=== PATIENT | female | born 1985 | race Caucasian/White ===

== ENCOUNTER 2019-10-01 19:48 | Emergency (ER) | payer SELFPAY ==
[2019-10-01] VITALS (7 sets, daily range): BP systolic 124–147; BP diastolic 85–104; PULSE 76–91; RESP 16–18; TEMP 36.4; O2SAT 94–99; BMI 36.3
[2019-10-01 20:08] LABS: Basophils % 0.2 %; Eosinophils # 0.2 10^3/uL (0.0-0.8); Eosinophils % 2.3 %; Hematocrit 39.1 % (37.0-47.0); Hemoglobin 12.3 g/dL (11.5-15.3); Lymphocytes # 2.6 10^3/uL (0.8-4.8); Lymphocytes % 28.7 %; Mean Corpuscular HGB Conc 31.5 g/dL (30.0-36.0); Mean Corpuscular Hemoglobin 26.9 pg (28.0-34.0); Mean Corpuscular Volume 85.6 fL (81-99); Mean Platelet Volume 10.2 fL (7.4-10.4); Monocytes # 0.6 10^3/uL (0.2-0.9); Monocytes % 6.2 %; Neutrophils % 62.4 %; Nucleated Red Blood Cells % 0 %; Platelet Count 310 10^3/cmm (130-400); Red Blood Count 4.57 10^6/uL (4.1-5.3); Red Cell Distribution Width 13.9 % (12.1-15.1)
[2019-10-01 20:24] LABS: Alanine Aminotransferase 12 U/L (0-33); Albumin Level 4.3 g/dL (3.5-5.2); Alkaline Phosphatase 73 IU/L (35-105); Anion Gap 14.6 (5-19); Aspartate Amino Transferase 15 U/L (0-32); Blood Urea Nitrogen 8 mg/dL (6-20); Calcium 9.2 mg/dL (8.5-10.5); Carbon Dioxide 24 mmol/L (22-29); Chloride 104 mmol/L (98-107); Globulin 3.1 g/dL (1.3-4.6); Glomerular Filtration Rate 113.8 mL/min (90-130); Glucose 121 mg/dL (65-115); Lipase 18 U/L (13-60); Osmolality Calculated 285 mOsm/kg (285-295); Potassium 3.6 mmol/L (3.5-5.1); Sodium 139 mmol/L (136-145); Total Bilirubin 0.4 mg/dL (0.15-1.2); Total Protein 7.4 g/dL (6.6-8.7)
--- NOTE | 2019-10-01 21:32 | ECG_ITS ---
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 Measurements Intervals Odell Rate: 74 P: 16 OK: 190 QRS: 31 QRSD: 96 T: 29 QT: 366 QTc: 406 Interpretive Statements SINUS RHYTHM No previous ECG available for comparison Electronically Signed On 10-02-2019 22:40:16 CDT by Joe Sepulveda M.D. [id number]
--- NOTE | 2019-10-01 21:33 | US_ITS ---
WS: [id number] EXAM: RIGHT UPPER QUADRANT ULTRASOUND DATE OF EXAMINATION: 10/01/2019, 2206 hours COMPARISON: None. HISTORY: 34 years old with right upper quadrant pain. FINDINGS: Visualized pancreas is normal in appearance. Proximal inferior vena cava and aorta are normal in caliber. The liver is minimally enlarged. There may be some very minimal fatty infiltration. No mass within th e liver is seen. Portal venous flow is demonstrated by color flow and spectral Doppler with flow towa rd the liver. The gallbladder is normally distended without depress or stones. No wall thickening is seen. Common bile duct diameter is estimated at 0.4 mm in maximum transverse caliber. The right kidney is estimated at 12.5 x 4.1 x 4.2 cm in size. Cortical thickness and echotexture are normal. No mass or obstructive uropathy is seen. US/US gall bladder [id number] IMPRESSION: Minimal enlargement of the liver with suggestion for some minimal fatty infiltr ation. Otherwise normal right upper quadrant ultrasound. Common bile duct 3.6 mm in transverse caliber.
--- NOTE | 2019-10-01 21:36 | W.ED.ABDPA2 ---
HPI - Abdominal Pain General: Chief Complaint: Abdominal Pain Stated Complaint: upper abd pain Time Seen by Provider: 10/01/19 21:26 Source: patient Mode of arrival: ambulatory Limitations: no limitations History of Present Illness: HPI narrative: Joe is a nice 34-year-old female who comes in complaining of epigastric pain. She states the pain is been constant for the past 2 days. She has a dull aching pain that is constant and occasional cramping pains which she says make her pain much worse. She denies any vomiting but has been severely nauseated. She states her pain is moderate to severe. She denies any diarrhea or constipation. She denies any urinary symptoms such as urinary frequency, urgency or frequency. She denies any vaginal discharge or bleeding. Patient states she is had similar symptoms numerous times in the past but no cause can ever be determined. She states she is undergone CAT scan, hepatobiliary scans among other testing. Patient does admit to taking more ibuprofen than normal recently secondary to being out of her meloxicam that she would normally take. She says any kind of eating or drinking makes her symptoms much worse and only resting makes them better. Associated Symptoms: Reports nausea; Denies chills, coffee ground emesis, constipation, GI cramping, diarrhea, dysuria, fever(s), heartburn, hematochezia, hematuria, hematemesis, melena, syncope and vomiting Review of Systems Const: Denies: fever(s), chills, body aches, fatigue, malaise or diaphoresis Eyes: Denies: change in vision, blurry vision, photophobia, eye discomfort, eye discharge or eye redness ENMT: Denies: throat pain, odynophagia, hoarseness, swelling of lips/tongue, ear or mastoid pain, ear discharge, change in hearing or nasal discharge Card: Denies: chest pain, palpitations, irregular heart rhythm, edema, lightheadedness, syncope, pre-syncope, dyspnea on exertion or orthopnea Resp: Denies: dyspnea, productive cough, non-productive cough, wheezing, hemoptysis or chest congestion GI: Reports: abdominal pain and nausea; Denies: vomiting, hematemesis, coffee ground emesis, heartburn, diarrhea, constipation, GI cramping, hematochezia or melena : Denies: flank pain, dysuria, urinary frequency, urinary urgency or hematuria Musc: Denies: neck pain, back pain, extremity pain, extremity swelling, joint pain, joint swelling, joint redness, joint warmth or joint stiffness Skin/Breast: Denies: rash, pruritus, erythema or skin tenderness Neuro: Denies: headache(s), numbness in extremities, weakness in extremities, sensory changes, lack of coordination, difficulty walking, dizziness, vertigo, confusion, Slurred speech present or seizure-like activity Harpreet/Lymph: Denies: easy bruising, easy bleeding, petechiae, purpura or enlarged lymph nodes All/Imm: Denies: urticaria, throat swelling, tongue swelling, facial swelling or acute wheezing PFSH ED PFSH: Medical History (Updated 10/01/19 @ 23:03 by Jennifer Bryant) GERD (gastroesophageal reflux disease) Surgical History (Updated 10/01/19 @ 21:39 by Jennifer Bryant) H/O tubal ligation Female Reproductive History: : 2 Physical Exam Const: COMMON NORMALS: no acute distress, patient oriented x3, no limitations, healthy appearing and well nourished GENERAL APPEARANCE: cooperative, well kempt and well developed HENMT: COMMON NORMALS: normocephalic, atraumatic, external ears normal, EAC's normal and Normal external nose present HEAD & SCALP: normal to inspection, normocephalic and atraumatic FACE & SINUS: normal facial exam and face symmetric NOSE: Normal external nose present and Normal nares present EXTERNAL EAR: Yes external ears normal EXTERNAL AUDITORY CANAL: EAC's normal MOUTH: Normal oral and palatal mucosa present, lip normal and tongue normal Eye: COMMON NORMALS: Equal, round and reactive pupils present and conjunctivae normal GENERAL EYE: appearance normal, both eyes and all related structures ALIGNMENT: Yes alignment normal PERIORBITAL: periorbital findings normal EYELID: eyelids normal CONJUNCTIVA: Yes conjunctivae normal SCLERA: sclerae normal PUPIL: Yes Equal, round and reactive pupils present Neck/C-Spine: COMMON NORMALS: full ROM, no lymphadenopathy, supple, no meningeal signs and no JVD GENERAL: Yes normal visual inspection and Yes trachea midline Chest: COMMONS NORMALS: normal inspection of the chest and normal palpation of entire chest wall Resp: COMMON NORMALS: normal respiratory effort, No retractions, No use of accessory muscles and clear to auscultation bilaterally EFFORT & INSPECTION: Yes able to speak in complete sentences and Yes symmetric chest movement AUSCULTATION: clear to auscultation bilaterally, no crackles, no rales, no rhonchi and no wheezes Cardio: COMMON NORMALS: no JVD, regular rate, regular rhythm, S1 normal heart sound present and S2 normal heart sound present RATE: regular rate RHYTHM: regular rhythm HEART SOUNDS: S1 normal heart sound present, S2 normal heart sound present, no click, no gallops, no murmurs, no rubs and abnormal split S2 GI: COMMON NORMALS: Soft to palpation and No hepatosplenomegaly present PALPATION: Yes Soft to palpation, Yes Tenderness to palpation present (GI) (Epigastric area?mild), No Guarding due to palpation present (GI), No Rigid due to palpation, Yes No hepatosplenomegaly present, No Hernia present, No Palpable mass present and No Pulsatile mass present : COMMON NORMALS: Yes no CVA tenderness BLADDER/KIDNEY EXAM: Yes no CVA tenderness EXTERNAL FEMALE EXAM: No Hernia present Back/Pelvis: COMMON NORMALS: no CVA tenderness, thoracic and lumbar spine normal to inspection, no thoracic nor lumbar tenderness and thoraco-lumbar ROM normal Extremity: COMMON NORMALS: normal to inspection, full ROM, capillary refill normal, no joint enlargement, no clubbing, cyanosis or edema and no calf tenderness Neuro: COMMON NORMALS: patient oriented x3, CN's II-XII intact bilaterally, moves all extremities, no focal motor deficits and no sensory deficits noted MENINGEAL SIGNS: Yes no meningeal signs SPEECH: speech normal Psych: COMMON NORMALS: mental status grossly normal, Normal thought process present, cooperative, normal affect, speech normal and activity/motor behavior normal APPEARANCE: Yes well kempt SPEECH: Yes normal speech THOUGHT PROCESS: Normal thought process present Skin: COMMON NORMALS: no rashes or lesions noted, turgor normal, no jaundice, no petechiae and no mottling GENERAL SKIN EXAM: no rashes or lesions noted and turgor normal Course Vital Signs: Vital signs: Vital Signs Temperature 97.6 F 10/01/19 20:09 Pulse Rate 91 10/01/19 22:36 Respiratory Rate 17 10/01/19 22:53 Blood Pressure 142/104 10/01/19 22:36 Pulse Oximetry 99 10/01/19 22:53 MDM - Abdominal Pain MDM Narrative: Medical decision making narrative: Joe is a nice 34-year-old female who comes in with recurrent upper abdominal pain. She states she is been worked up for this several times in the past. She admits now to not taking her PPI for the past 2 days as well as taking Motrin for chronic arthritic pain. I believe she likely has a gastritis. There is no evidence of gallbladder disease on ultrasound. Patient is feeling markedly better now after pain medication and nausea medicine. She refuses a CT scan of the abdomen and pelvis and she denies having any lower abdominal pain. She agrees that it is a good idea to follow-up with a surgeon for possible EGD and repeat gallbladder testing. She agrees to return here should her symptoms change or worsen otherwise she states she will follow-up with her regular doctor or return here if needed. On repeat exam the patient has no signs of peritonitis, she had no signs on the initial exam. She states her pain is almost completely gone. Lab Data: Attestation: I reviewed the patient's lab results. Labs: Lab Results 10/01/19 10/01/19 10/01/19 Range/Units 07:57 07:57 19:56 WBC 9.0 (4.0-10.0) 10^3/ uL RBC 4.57 (4.1-5.3) 10^6/u L Hgb 12.3 (11.5-15.3) g/dL Hct 39.1 (37.0-47.0) % MCV 85.6 (81-99) fL MCH 26.9 L (28.0-34.0) pg MCHC 31.5 (30.0-36.0) g/dL RDW 13.9 (12.1-15.1) % Plt Count 310 (130-400) 10^3/c mm MPV 10.2 (7.4-10.4) fL Neut % (Auto) 62.4 % Lymph % (Auto) 28.7 % [place] % (Auto) 6.2 % Eos % (Auto) 2.3 % Baso % (Auto) 0.2 % Neut # (Auto) 5.60 (1.8-7.7) 10^3/u L Lymph # (Auto) 2.6 (0.8-4.8) 10^3/u L [place] # (Auto) 0.6 (0.2-0.9) 10^3/u L Eos # (Auto) 0.2 (0.0-0.8) 10^3/u L Baso # (Auto) 0.0 (0.0-0.1) 10^3/u L Nucleated RBC % (a uto) 0 % Nucleated RBCs # 0.0 /100WBC Sodium 139 (136-145) mmol/L Potassium 3.6 (3.5-5.1) mmol/L Chloride 104 (98-107) mmol/L Carbon Dioxide 24 (22-29) mmol/L Anion Gap 14.6 (5-19) BUN 8 (6-20) mg/dL Creatinine 0.6 (0.5-0.9) mg/dL GFR Calculation 113.8 (90-130) mL/min Glucose 121 H (65-115) mg/dL Calculated Osmolal ity 285 (285-295) mOsm/k g Calcium 9.2 (8.5-10.5) mg/dL Total Bilirubin 0.4 (0.15-1.2) mg/dL AST 15 (0-32) U/L ALT 12 (0-33) U/L Alkaline Phosphata se 73 (35-105) IU/L Total Protein 7.4 (6.6-8.7) g/dL Albumin 4.3 (3.5-5.2) g/dL Globulin 3.1 (1.3-4.6) g/dL Lipase 18 20 (13-60) U/L HCG, Qual (Negative) Urine Color (Yellow) Urine Appearance (CLEAR) Urine pH (5-7) Ur Specific Gravit y (1.005-1.030) Urine Protein (Negative) Urine Glucose (UA) (Normal) Urine Ketones (Negative) Urine Blood (Negative) Urine Nitrate (Negative) Urine Bilirubin (NEGATIVE) Urine Urobilinogen (Negative) mg/dL Ur Leukocyte Nilam ase (Negative) 10/01/19 10/01/19 10/01/19 Range/Units 19:56 21:37 21:37 WBC (4.0-10.0) 10^3/ uL RBC (4.1-5.3) 10^6/u L Hgb (11.5-15.3) g/dL Hct (37.0-47.0) % MCV (81-99) fL MCH (28.0-34.0) pg MCHC (30.0-36.0) g/dL RDW (12.1-15.1) % Plt Count (130-400) 10^3/c mm MPV (7.4-10.4) fL Neut % (Auto) % Lymph % (Auto) % [place] % (Auto) % Eos % (Auto) % Baso % (Auto) % Neut # (Auto) (1.8-7.7) 10^3/u L Lymph # (Auto) (0.8-4.8) 10^3/u L [place] # (Auto) (0.2-0.9) 10^3/u L Eos # (Auto) (0.0-0.8) 10^3/u L Baso # (Auto) (0.0-0.1) 10^3/u L Nucleated RBC % (a uto) % Nucleated RBCs # /100WBC Sodium (136-145) mmol/L Potassium (3.5-5.1) mmol/L Chloride (98-107) mmol/L Carbon Dioxide (22-29) mmol/L Anion Gap (5-19) BUN (6-20) mg/dL Creatinine (0.5-0.9) mg/dL GFR Calculation (90-130) mL/min Glucose (65-115) mg/dL Calculated Osmolal ity (285-295) mOsm/k g Calcium (8.5-10.5) mg/dL Total Bilirubin (0.15-1.2) mg/dL AST (0-32) U/L ALT (0-33) U/L Alkaline Phosphata se (35-105) IU/L Total Protein (6.6-8.7) g/dL Albumin (3.5-5.2) g/dL Globulin (1.3-4.6) g/dL Lipase (13-60) U/L HCG, Qual Negative Negative (Negative) Urine Color Yellow (Yellow) Urine Appearance Clear (CLEAR) Urine pH 6.5 (5-7) Ur Specific Gravit y 1.015 (1.005-1.030) Urine Protein Neg (Negative) Urine Glucose (UA) Norm (Normal) Urine Ketones Negative (Negative) Urine Blood Neg (Negative) Urine Nitrate Negative (Negative) Urine Bilirubin Neg (NEGATIVE) Urine Urobilinogen Norm (Negative) mg/dL Ur Leukocyte Nilam ase Negative (Negative) Imaging Data ^: US: My impression: Ultrasound gallbladder, tech interpretation -fatty liver. Gallbladder normal. All other findings unremarkable. Please see final report. EKG Data ^: EKG 1: Attestation: I personally reviewed and interpreted this EKG as follows: EKG interpretation date: 10/01/19 EKG interpretation time: 21:56 Interpretation: Normal sinus rhythm at 74 beats a minute, normal axis, no blocks, normal intervals, no acute ST-T wave changes. Discharge Plan Discharge Patient Disposition: Home Clinical Impression: Abdominal pain Qualifiers: Abdominal location: epigastric Qualified Code(s): R10.13 - Epigastric pain Condition: Stable Prescriptions: New Zofran 4 mg tablet 4 mg PO Q6H PRN (Reason: nausea and vomiting) Qty: 20 RF: 0 Discharge Orders: Discharge Order (Routine); Ordered 10/01/19 Ordered By: Jennifer Bryant Referrals: Naveen Nevarez MD [Physician] - 1-3 days Zachary Powell [Primary Care Provider] - Discharge Diet: Advance as tolerated Discharge Activity: Increase activity as tolerated Patient Instructions: Abdominal Pain (ED) Activity Restrictions/Additional Instructions: Please return to the ER immediately for any of the signs or symptoms listed on your discharge instruction sheets, worsening/changing of your symptoms, you are not getting better as quickly as expected, or for ANY other cause or concerns. Certain to follow-up with Dr. Nevarez as soon as possible for recheck. He can determine if a repeat HIDA scan or a EGD is indicated. Return to the ER if your pain moved to the lower part of your abdomen, you develop a fever, began to vomit, or for any other cause for concern. Coding Level of Care Code ED Gas Station Supervisor for Chg Fwd Exam Comprehensive
[2019-10-01 21:52] LABS: HCG, Serum Qual Negative (Negative)
--- NOTE | 2019-10-01 22:03 | PC.NURSE ---
ultrasound in room
[2019-10-01 22:08] LABS: Add Urine Microscopic? NO
[2019-10-01 22:19] LABS: Bilirubin Urine Neg (NEGATIVE); Blood Urine Neg (Negative); Glucose Urine UA Norm (Normal); HCG Qualitative Urine. Negative (Negative); Ketones Urine Negative (Negative); Leukocyte Esterase Urine Negative (Negative); Nitrate Urine Negative (Negative); Protein Urine Neg (Negative); Specific Gravity, Urine 1.015 (1.005-1.030); Urine Appearance Clear (CLEAR); Urine Color Yellow (Yellow); Urobilinogen Urine Norm (Negative); pH Urine 6.5 (5-7)
[2019-10-01] MEDS: morphine 4 mg/mL SDV 1 mL IVP (22:23)
[2019-10-01] MEDS: famotidine 20 mg/2 mL INJ 40 MG IVP (22:24)
[2019-10-01] MEDS: ondansetron 2 mg/ML SDV 2 mL 4 MG IVP (22:24)
[2019-10-01 22:33] LABS: Lipase 20 U/L (13-60)
[2019-10-01] MEDS: lidocaine 2% viscous 15 ML, aluminum-mag hydrox-simethicon 30 ML, sucralfate oral liq 1 GM PO (22:35)
[2019-10-01] MEDS: metoclopramide 5 mg/mL SDV 2 mL 10 MG IVP (22:53)
[2019-10-01] MEDS: HYDROmorphone 1 mg/mL INJ 1 mL 0.5 MG IVP (22:53)
[2019-10-01] MEDS: pantoprazole 40 mg SDV 80 MG IVP (23:51)
--- NOTE | 2019-10-03 09:11 | DCPLANNER ---
guest experience manager had message to schedule a follow up appointment for patient with general surgery. guest experience manager called [facility], spoke with Jenifer, gave clinic patients information. guest experience manager was told that patients information would be printed and reviewed. Clinic will call patient with appointment information.
--- NOTE | 2019-10-14 15:13 | DCPLANNER ---
Patient had a follow up appointment scheduled for 10.13.19 with [facility] - patient did not attend the appointment.
== END 2019-10-01 23:57 | disposition home or self-care (01) ==
PROVIDERS: Emergency Medicine; Emergency Provider Emergency Medicine; PCP Family Medicine
DX: R10.13 Epigastric pain (principal)
CPT/HCPCS: 12345; 36415; 76705; 80053; 81003; 81025; 83690; 84703; 85025; 93005; 96374; 96375; 99283; 99284; C9113; J1170; J2270; J2405; J2765; J3490

== ENCOUNTER 2020-03-15 10:11 | Emergency (ER) | payer OTHER, MEDICAID, SELFPAY ==
[2020-03-15 10:19] VITALS: BP 164/84; PULSE 92; RESP 18; TEMP 36.9; O2SAT 99; BMI 37.8
[2020-03-15] MEDS: lidocaine 2% viscous 15 ML, aluminum-mag hydrox-simethicon 30 ML, sucralfate oral liq 1 GM PO (10:55)
[2020-03-15 11:01] LABS: Basophils % 0.4 %; Eosinophils # 0.1 10^3/uL (0.0-0.8); Eosinophils % 1.8 %; Hematocrit 40.5 % (37.0-47.0); Hemoglobin 12.9 g/dL (11.5-15.3); Lymphocytes # 1.9 10^3/uL (0.8-4.8); Lymphocytes % 23.4 %; Mean Corpuscular HGB Conc 31.9 g/dL (30.0-36.0); Mean Platelet Volume 10.3 fL (7.4-10.4); Monocytes # 0.7 10^3/uL (0.2-0.9); Monocytes % 9.1 %; Neutrophils # 5.15 10^3/uL (1.8-7.7); Neutrophils % 64.9 %; Nucleated Red Blood Cells % 0 %; Platelet Count 300 10^3/cmm (130-400); Red Cell Distribution Width 13.2 % (12.1-15.1); White Blood Count 7.9 10^3/uL (4.0-10.0)
--- NOTE | 2020-03-15 11:29 | ED_ITS ---
HPI - Abdominal Pain General: Chief Complaint: Abdominal Pain Stated Complaint: Abd/chest pain Time Seen by Provider: 03/15/20 10:13 History of Present Illness: HPI narrative: 34-year-old female presents to the emergency room complaining of epigastric discomfort and pain. Burning radiating up in the chest. She has had a full evaluation for gallbladder in the past including ultrasound and HIDA scan all of which were negative she did recently within the last few weeks been started on a PPI which up until last night seem to be doing well. She did have some jerky last night that seemed to set things off. She has been nauseous vomited a couple times no hematemesis. She has not had any diarrhea. MD elicited complaint: abdominal pain Pertinent past history: other (GERD) Onset (ago): week(s) Pain Consistency: constant Location: Epigastric Severity: moderate Quality: cramping Radiation: none Exacerbating factors: nothing Relieving factors: nothing Associated Symptoms: Reports anorexia, bloating, GI cramping, dyspepsia, nausea and poor appetite; Denies belching, change in bowel habits, change in stool character, chills, coffee ground emesis, constipation, diarrhea, dysuria, excessive flatus, fever(s), heartburn, hematochezia, hematuria, hematemesis, fecal incontinence, loose stools, melena, syncope and vomiting Review of Systems Const: Denies: fever(s) or chills ENMT: Denies: throat pain, ear or mastoid pain, nasal discharge or nasal congestion Card: Denies: syncope Resp: Denies: dyspnea, productive cough or non-productive cough GI: Reports: nausea, bloating and GI cramping; Denies: vomiting, hematemesis, coffee ground emesis, heartburn, diarrhea, constipation, belching, excessive flatus, fecal incontinence, change in bowel habits, change in stool character, hematochezia or melena : Denies: dysuria or hematuria Skin/Breast: Denies: rash or pruritus PFSH ED PFSH: Medical History GERD (gastroesophageal reflux disease) Surgical History H/O tubal ligation Physical Exam Const: COMMON NORMALS: no acute distress GENERAL APPEARANCE: cooperative and comfortable ORIENTATION/CONSCIOUSNESS: Yes awake, Yes oriented to person, Yes oriented to place and Yes oriented to time HENMT: COMMON NORMALS: normocephalic, atraumatic and hearing grossly normal bilaterally HEAD & SCALP: normocephalic and atraumatic Eye: COMMON NORMALS: Equal, round and reactive pupils present, EOMs intact bilaterally, conjunctivae normal and no scleral icterus CONJUNCTIVA: Yes conjunctivae normal PUPIL: Yes Equal, round and reactive pupils present Neck/C-Spine: COMMON NORMALS: full ROM, no lymphadenopathy, supple and no JVD Lymph: LYMPHATIC: no lymphadenopathy noted and no lymphedema noted Resp: COMMON NORMALS: normal respiratory effort, No retractions, No use of accessory muscles and clear to auscultation bilaterally AUSCULTATION: clear to auscultation bilaterally Cardio: COMMON NORMALS: no JVD, regular rate, regular rhythm and No murmurs present (Cardio) RATE: regular rate RHYTHM: regular rhythm GI: COMMON NORMALS: Soft to palpation and No hepatosplenomegaly present AUSCULTATION: Yes normoactive bowel sounds PALPATION: Yes Soft to palpation, No Tenderness to palpation present (GI), No Guarding due to palpation present (GI) and Yes No hepatosplenomegaly present Extremity: COMMON NORMALS: normal to inspection, capillary refill normal, no clubbing, cyanosis or edema, no calf tenderness and no pedal edema Neuro: SENSORIUM/ORIENTATION: Yes oriented to person, Yes oriented to place and Yes oriented to time Skin: COMMON NORMALS: no rashes or lesions noted GENERAL SKIN EXAM: no rashes or lesions noted Course Vital Signs: Vital signs: Vital Signs Temperature 98.4 F 03/15/20 10:19 Pulse Rate 85 03/15/20 12:28 Respiratory Rate 21 H 03/15/20 12:28 Blood Pressure 152/91 03/15/20 12:28 Pulse Oximetry 100 03/15/20 12:28 MDM - Abdominal Pain MDM Narrative: Medical decision making narrative: Improved after the GI cocktail. We will increase her Protonix to twice daily gave her Zofran and will have her see surgery for an EGD. Lab Data: Labs: Lab Results 03/15/20 03/15/20 03/15/20 Range/Units 10:47 10:47 10:47 WBC 7.9 (4.0-10.0) 10^3/ uL RBC 4.60 (4.1-5.3) 10^6/u L Hgb 12.9 (11.5-15.3) g/dL Hct 40.5 (37.0-47.0) % MCV 88.0 (81-99) fL MCH 28.0 (28.0-34.0) pg MCHC 31.9 (30.0-36.0) g/dL RDW 13.2 (12.1-15.1) % Plt Count 300 (130-400) 10^3/c mm MPV 10.3 (7.4-10.4) fL Neut % (Auto) 64.9 % Lymph % (Auto) 23.4 % [place] % (Auto) 9.1 % Eos % (Auto) 1.8 % Baso % (Auto) 0.4 % Neut # (Auto) 5.15 (1.8-7.7) 10^3/u L Lymph # (Auto) 1.9 (0.8-4.8) 10^3/u L [place] # (Auto) 0.7 (0.2-0.9) 10^3/u L Eos # (Auto) 0.1 (0.0-0.8) 10^3/u L Baso # (Auto) 0.0 (0.0-0.1) 10^3/u L Nucleated RBC % (a uto) 0 % Nucleated RBCs # 0.0 /100WBC Sodium 140 (136-145) mmol/L Potassium 3.8 (3.5-5.1) mmol/L Chloride 104 (98-107) mmol/L Carbon Dioxide 26 (22-29) mmol/L Anion Gap 13.8 (5-19) BUN 8 (6-20) mg/dL Creatinine 0.6 (0.5-0.9) mg/dL GFR Calculation 113.8 (90-130) mL/min Glucose 85 (65-115) mg/dL Calculated Osmolal ity 288 (285-295) mOsm/k g Calcium 8.9 (8.5-10.5) mg/dL Total Bilirubin 0.2 (0.15-1.2) mg/dL AST 17 (0-32) U/L ALT 18 (0-33) U/L Alkaline Phosphata se 94 (35-105) IU/L Total Protein 7.5 (6.6-8.7) g/dL Albumin 4.2 (3.5-5.2) g/dL Globulin 3.3 (1.3-4.6) g/dL H. pylori IgG Anti body Negative (Negative) Discharge Plan Discharge Patient Disposition: Home Clinical Impression: GERD (gastroesophageal reflux disease) Condition: Stable Prescriptions: New Zofran 4 mg tablet 4 mg PO Q6H PRN (Reason: nausea and vomiting) Qty: 20 RF: 0 Protonix 40 mg tablet,delayed release (DR/EC) 40 mg PO BID 30 Days Qty: 60 RF: 0 No Action tramadol 50 mg tablet 50 mg PO BID PRN (Reason: Pain) RF: 0 amitriptyline 50 mg tablet 50 mg PO BEDTIME RF: 0 methocarbamol 750 mg tablet 750 mg PO TID RF: 0 pantoprazole 40 mg tablet,delayed release (DR/EC) 40 mg PO QAM RF: 0 buspirone 10 mg tablet 10 mg PO BID RF: 0 Vitamin Tablet 1 tab PO DAILY RF: 0 Probiotic 1 cap PO BID RF: 0 Discharge Orders: Discharge ED (Routine); Ordered 03/15/20 Ordered By: August Sanon Referrals: Zachary Powell [Primary Care Provider] - Discharge Diet: As Directed Discharge Activity: Increase activity as tolerated Patient Instructions: [place] Diet - Adult, Diet for Ulcers and Gastritis (ED) Activity Restrictions/Additional Instructions: Case management will call to arrange for a consultation with surgery for possible EGD Coding Level of Care Code ED Lagging Machine Operator for Mitra Mohr
[2020-03-15 11:41] LABS: Alanine Aminotransferase 18 U/L (0-33); Albumin Level 4.2 g/dL (3.5-5.2); Alkaline Phosphatase 94 IU/L (35-105); Aspartate Amino Transferase 17 U/L (0-32); Blood Urea Nitrogen 8 mg/dL (6-20); Calcium 8.9 mg/dL (8.5-10.5); Carbon Dioxide 26 mmol/L (22-29); Chloride 104 mmol/L (98-107); Globulin 3.3 g/dL (1.3-4.6); Glomerular Filtration Rate 113.8 mL/min (90-130); Glucose 85 mg/dL (65-115); Osmolality Calculated 288 mOsm/kg (285-295); Sodium 140 mmol/L (136-145); Total Bilirubin 0.2 mg/dL (0.15-1.2); Total Protein 7.5 g/dL (6.6-8.7)
[2020-03-15 11:49] LABS: Anion Gap 13.8 (5-19); Potassium 3.8 mmol/L (3.5-5.1)
[2020-03-15 11:55] LABS: H. Pylori IgG Antibody Negative (Negative)
[2020-03-15] MEDS: ondansetron 2 mg/ML SDV 2 mL 4 MG IVP (12:25)
[2020-03-15 12:28] VITALS: BP 152/91; PULSE 85; RESP 21; O2SAT 100
--- NOTE | 2020-03-15 13:45 | DCPLANNER ---
quality systems manager was asked to schedule a follow up appointment for patient with general surgery. quality systems manager emailed patients information to both Elizabeth and Jenifer at [facility] General Surgery. Patients information will be printed and reviewed. Clinic will call patient with appointment information.
--- NOTE | 2020-03-18 12:14 | DCPLANNER ---
Patient has a follow up appointment scheduled for Sunday, March 22, [address] at 2:[address] Meyers. Clinic will call patient with appointment information.
--- NOTE | 2020-04-29 15:46 | DCPLANNER ---
Patient had a follow up appointment scheduled for 03.22.20 with general surgery - patient did attend appointment.
== END 2020-03-15 12:32 | disposition home or self-care (01) ==
PROVIDERS: Emergency Provider Family Medicine; PCP Family Medicine
DX: K21.9 Gastro-esophageal reflux disease without esophagitis (principal)
CPT/HCPCS: 12345; 80053; 85025; 86677; 96374; 99283; J2405

== ENCOUNTER 2020-04-20 07:38 | Day surgery (SDC) | payer OTHER, MEDICAID, SELFPAY ==
[2020-04-17 19:02] LABS: Coronavirus Test Green County Not Detected
[2020-04-19 08:37] VITALS: BMI 37.1
--- NOTE | 2020-04-20 08:06 | ANES.PREANE2 ---
Pre-Anesthetic Assessment Pre-Anesthetic Assessment: Height/Weight: Height 1.68 m Weight 104.326 kg Proposed Procedure: Operation Date: 04/20/20 09:30 Proposed Procedures p EGD 15997 K21.9(Not Applicable) - Alfred Meyers MD Was Beta Micaela taken within 24 hours: N/A Social: Social History: No alcohol and No tobacco Exam: Pre-Anes Outpt Exam: alert and oriented x 3 Airway: Submandibular: WNL Cervical ROM: WNL MP: 1 Dentition: Full History/ROS: No significant complaints Pulmonary: Pulmonary: None reported CV/HEM: CV/HEM: None reported : : None reported Hepatic: Hepatic: None reported GI: GI: GERD Metabolic: Metabolic: Morbid obesity Musc/skel: Musc/skel: None reported Neuropsych: Neuropsych: Anxiety and Depression Anesthetic Plan: ASA status: 2 Anesthesia: MAC PFSH Anesthesia PFSH: Medical History (Updated 03/22/20 @ 14:14 by Judi Last CMA) GERD (gastroesophageal reflux disease) Surgical History (Updated 03/22/20 @ 14:24 by Alfred Meyers MD) H/O tubal ligation History of delivery History of hip surgery History of knee surgery History of umbilical hernia repair Data Anesthesia Cardiac Studies: No Data to Display
[2020-04-20 08:11] VITALS: BP 160/105; PULSE 88; RESP 18; TEMP 36.8; O2SAT 100
[2020-04-20] MEDS: sodium chloride 0.9% 1,000 ML 30 ML IV (08:35)
--- NOTE | 2020-04-20 10:09 | W.PM.OPSFHP ---
Same Day Surgery H&P Indication for Procedure/HPI DATE OF PROCEDURE: April 20, 2020 CHIEF COMPLAINT/INDICATIONFOR SURGICAL PROCEDURE: abdominal pain PREOP DIAGNOSIS: upper gi symptoms PLANNED PROCEDRUE: Operation Date: 04/20/20 09:30 Proposed Procedures p EGD 15225 K21.9(Not Applicable) - Alfred Meyers MD Medications/Allergies* Home Medications Medication Instructions Recorded Confirmed Type Probiotic 1 cap PO BID 03/15/20 04/20/20 History amitriptyline 50 mg PO BEDTIME 03/15/20 04/20/20 History buspirone 10 mg PO BID 03/15/20 04/20/20 History methocarbamol 750 mg PO TID 03/15/20 04/20/20 History pantoprazole 40 mg PO QAM 03/15/20 04/20/20 History prenat.vits,ang[place],gom-tdew-dmjrx 1 tab PO DAILY 03/15/20 04/20/20 History [ Vitamin] tramadol 50 mg PO BID PRN 03/15/20 04/20/20 History Allergies/Adverse Reactions Allergy/AdvReac Type Severity Reaction Status Date / Time codeine Allergy ALGY-Swell Verified 03/22/20 14:05 Lip/Tongue/Throat sumatriptan Allergy ADR-Hyperte Verified 03/22/20 14:05 nsion Current Medications: Generic Name Dose Route Start Last Admin Trade Name Freq PRN Reason Stop Dose Admin Sodium Chloride 1,000 mls @ 30 mls/hr 04/20/20 08:15 04/20/20 08:35 Sodium Chloride 0.9% IV 04/21/20 08:14 30 mls/hr .Q24H GONZÁLEZ Administration Pertinent History/Comorbid Conditions* Medical History (Updated 03/15/20 @ 12:20 by August Sanon DO) GERD (gastroesophageal reflux disease) Surgical History (Updated 03/22/20 @ 14:24 by Alfred Meyers MD) H/O tubal ligation History of delivery History of hip surgery History of knee surgery History of umbilical hernia repair Pertinent Exam Findings alert, oriented x 3 and regular rate & rhythm Recommendations Surgery/Procedure today Coding Level of Care Code Acute 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
--- NOTE | 2020-04-20 10:24 | P.PCN_ITS ---
PACU note Post-Anesthesia Exam: awake Disposition: discharged
--- NOTE | 2020-04-20 10:24 | PM.PACU ---
PACU note Post-Anesthesia Exam: awake Disposition: discharged
[2020-04-20 10:27] VITALS: BP 156/96; PULSE 83; RESP 18; TEMP 36.5; O2SAT 99
--- NOTE | 2020-04-20 10:27 | ANE.PACU2 ---
Inpatient post-anesthesia follow up: Airway intact: Yes Vital signs: Temperature 98.3 F Pulse Rate 88 Respiratory Rate 18 Blood Pressure 160/105 Pulse Oximetry 100 Oxygen Delivery Me thod Room Air Oxygen Flow Rate Fraction of Inspir ed Oxygen Hydration adequate: Yes Nausea and vomiting: No Pain level: 1 Mental status: Baseline
[2020-04-20 10:41] VITALS: BP 105/88; PULSE 81; RESP 18; O2SAT 100
== END 2020-04-20 11:15 | disposition home or self-care (01) ==
PROVIDERS: PCP Family Medicine; Visit Provider Surgery
PROC: 0DJ08ZZ Inspection of Upper Intestinal Tract, Via Natural or Artificial Opening Endoscopic (ICD-10-PCS; CPT 43235; principal; 2020-04-20 09:30)
DX: R10.9 Unspecified abdominal pain (principal); K21.9 Gastro-esophageal reflux disease without esophagitis; K44.9 Diaphragmatic hernia without obstruction or gangrene; K29.70 Gastritis, unspecified, without bleeding; E66.01 Morbid (severe) obesity due to excess calories; Z68.37 Body mass index [BMI] 37.0-37.9, adult
CPT/HCPCS: 43239; 87635; 88305; 96360; 96361; J2704; J7030

== ENCOUNTER 2020-05-26 12:50 | Outpatient (CLI) | payer OTHER, MEDICAID, SELFPAY ==
--- NOTE | 2020-05-26 13:08 | MR_ITS ---
WS: [id number] MRI CERVICAL SPINE NONCONTRAST HISTORY: NUMBNESS/TINGLING IN HANDS, WEAKNESS OF BOTH ARMS COMPARISON: None available. Technique: Multiplanar, multisequence noncontrast imaging of the cervical spine. Straightening and slight reversal of the normal cervical lordosis. Signal within the cervical cord is normal. Visualized posterior fossa is unremarkable. Craniocervical junction, C1 and C2 relationship, odontoid process and soft tissues are normal. C2-C3: Normal. C3-C4: Normal. C4-C5: Normal. C5-C6: Very small vertebral body osteophytes and very tiny central disc protrusion. No stenosis or en croachment upon the cord. C6-C7: Mild osteophytic ridging with a tiny central disc protrusion and no stenosis. C7-T1: Normal. Paraspinal soft tissue are normal. MR/MR cervical spin wo con* [id number] IMPRESSION: 1. No significant central or foraminal stenosis. 2. Very minimal central disc protrusions at C5-6 and C6-7 without cord contact . 3. Mild straightening and reversal normal cervical lordosis may be due to spas m or positioning.
--- NOTE | 2020-05-26 13:09 | MR_ITS ---
WS: [id number] MRI THORACIC SPINE noncontrast. HISTORY: UPPER BACK PAIN, SHOULDER BLADE PAIN, CERVICAL DISC DISORDER COMPARISON: None available. TECHNIQUE: Multiplanar sequences are performed in sagittal and axial planes. Mild straightening of the normal thoracic kyphosis. No marrow edema or fracture. Signal within the co rd is normal. No atrophy or enlargement of the cord. T1-2: Mild bilateral foraminal facet disease. T2-3: Mild foraminal narrowing due to facet disease. T3-4: Mild bilateral foraminal narrowing due to facet disease. T4-5: Mild LEFT foraminal narrowing due to facet disease. T5-6: Mild bilateral foraminal narrowing due to facet disease. T6-7: Mild LEFT foraminal stenosis. T7-8: Normal. T8-9: Normal. T9-10: Mild bilateral facet arthritis. T10-11: Moderate bilateral facet joint arthritis with mild encroachment into the thecal sac and fora men. Mild bilateral foraminal narrowing. T11-12: Moderate facet joint arthritis on the RIGHT causing mild foraminal stenosis. Paravertebral soft tissues are normal. MR/MR thoracic spin wo con* [id number] IMPRESSION: 1. No acute thoracic fractures or cord compression. 2. Multilevel facet joint arthritis resulting in foraminal stenosis. Facet tyler nt space narrowing is mild at multiple levels as described above. Most signific ant on the RIGHT at T10-11 and T11-12.
== END 2020-05-26 12:51 | disposition home or self-care (01) ==
LOC: RADSHAW 12:54
PROVIDERS: PCP Nurse Practitioner Family; Visit Provider Nurse Practitioner Family
DX: R20.2 Paresthesia of skin (principal); R29.898 Other symptoms and signs involving the musculoskeletal system; M50.03 Cervical disc disorder with myelopathy, cervicothoracic region; M89.8X1 Other specified disorders of bone, shoulder; M54.9 Dorsalgia, unspecified
CPT/HCPCS: 72141; 72146

== ENCOUNTER → 2020-06-30 09:02 | Outpatient (BNVA) | payer OTHER, MEDICAID, SELFPAY | PROVIDERS: PCP Nurse Practitioner Family; Referring Provider Nurse Practitioner Family; Visit Provider Anesthesiology Pain Medicine | DX: M50.90 Cervical disc disorder, unspecified, unspecified cervical region (principal); M79.18 Myalgia, other site; M47.814 Spondylosis without myelopathy or radiculopathy, thoracic region; Z79.891 Long term (current) use of opiate analgesic | CPT/HCPCS: 20553; 99205; J1030; J3490 ==

== ENCOUNTER → 2020-07-08 14:59 | Outpatient (BNVA) | payer OTHER, MEDICAID, SELFPAY | PROVIDERS: PCP Nurse Practitioner Family; Visit Provider Registered Nurse Neonatal Intensive Care | DX: R09.89 Other specified symptoms and signs involving the circulatory and respiratory systems (principal) | CPT/HCPCS: 71046 ==

== ENCOUNTER 2022-01-23 18:10 | Inpatient (IN) | payer BC, MEDICAID, SELFPAY ==
[2022-01-23 18:22] VITALS: BP 143/91; PULSE 104; RESP 18; TEMP 36.9; O2SAT 94; BMI 37.5
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
[2022-01-23 20:17] LABS: Basophils % 0.3 %; Eosinophils # 0.1 10^3/uL (0.0-0.8); Eosinophils % 0.8 %; Hematocrit 40.5 % (37.0-47.0); Hemoglobin 13.1 g/dL (11.5-15.3); Lymphocytes # 2.1 10^3/uL (0.8-4.8); Lymphocytes % 20.9 %; Mean Corpuscular HGB Conc 32.3 g/dL (30.0-36.0); Mean Corpuscular Hemoglobin 26.9 pg (28.0-34.0); Mean Corpuscular Volume 83.2 fl (81-99); Mean Platelet Volume 9.8 fL (7.4-10.4); Monocytes # 0.9 10^3/uL (0.2-0.9); Monocytes % 8.3 %; Neutrophils # 7.09 10^3/uL (1.8-7.7); Neutrophils % 69.4 %; Nucleated Red Blood Cells % 0 %; Platelet Count 342 10^3/cmm (130-400); Red Blood Count 4.87 10^6/uL (4.1-5.3); Red Cell Distribution Width 13.7 % (12.1-15.1); White Blood Count 10.2 10^3/uL (4.0-10.0)
[2022-01-23 20:37] LABS: Alanine Aminotransferase 16 U/L (0-33); Albumin Level 4.3 g/dL (3.5-5.2); Alkaline Phosphatase 95 U/L (35-105); Anion Gap 13.9 (5-19); Aspartate Amino Transferase 14 U/L (0-32); Blood Urea Nitrogen 11 mg/dL (6-20); Calcium 9.9 mg/dL (8.5-10.5); Carbon Dioxide 26 mmol/L (22-29); Chloride 98 mmol/L (98-107); Globulin 3.6 g/dL (1.3-4.6); Glomerular Filtration Rate 138.8 mL/min (90-130); Glucose 81 mg/dL (65-115); Osmolality Calculated 276 mOsm/kg (285-295); Potassium 3.9 mmol/L (3.5-5.1); Sodium 134 mmol/L (136-145); Total Bilirubin 0.2 mg/dL (0.15-1.2); Total Protein 7.9 g/dL (6.6-8.7)
[2022-01-23 20:40] LABS: Acetaminophen < 5.0 ug/mL (10-30); Alcohol Level < 10 mg/dL (0-10); Salicylate < 0.3 mg/dL (3-10)
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
[2022-01-23 21:01] VITALS: BP 146/100; PULSE 97; RESP 17; TEMP 36.8; O2SAT 97
[2022-01-23 21:05] LABS: Amphetamines Screen Urine Negative (Negative); Barbiturates Screen Urine Positive (Negative); Benzodiazepines Screen Urine Negative (Negative); Cocaine Screen Urine Negative (Negative); Opiate Screen Urine Negative (Negative); PCP Screen Urine Negative (Negative); THC Screen Urine Negative (Negative)
[2022-01-23 21:17] LABS: HCG Qualitative Urine. Negative (Negative)
[2022-01-23] MEDS: hyDROXYzine 25 mg Capsule 50 MG PO (22:31)
[2022-01-23] MEDS: trazodone 50 mg Tablet PO (22:31)
[2022-01-24 06:00] VITALS: RESP 17
[2022-01-24 09:15] VITALS: BP 123/87; PULSE 89; O2SAT 96
[2022-01-24] MEDS: BuSPIRONE 10 mg Tablet 15 MG PO ×3 (09:36→20:36)
--- NOTE | 2022-01-24 09:36 | PC.NURSE ---
Pt resting in bed with eyes closed; respirations even and unlabored. Responded readily to name being called. Pt said her anxiety was mild and her depression was moderate. Reported back pain at 6/10. Said her anger was moderate and it was directed towards everything. Pt denied suicidal/homicidal thoughts, and hallucinations. Said her sleep and appetite are okay. Reported her bowels last moved the day before yesterday. Pt compliant with medications. Resumes resting in bed when undisturbed.
[2022-01-24] MEDS: prenatal vitamin Capsule 1 CAP PO (09:37)
[2022-01-24] MEDS: pantoprazole DR 40 mg Tablet PO (09:37)
[2022-01-24] MEDS: hydroCHLOROthiazide 25 mg Tablet PO (09:37)
[2022-01-24] MEDS: methocarbamol 750 mg Tablet 1500 MG PO ×3 (09:37→20:36)
[2022-01-24] MEDS: lactobacillus 1 Tablet 1 TAB PO ×2 (10:26→17:45)
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
[2022-01-24 14:00] VITALS: BP 120/76; PULSE 74; RESP 16; TEMP 36.8; O2SAT 98
[2022-01-24] MEDS: fluoxetine 20 mg Capsule PO (15:49)
--- NOTE | 2022-01-24 16:30 | PC.NURSE ---
Pt reported begining of headache behind her eyes 05/22. Pt asking for her medication to prevent it from getting worse. Medication taken to pharmacy for verification; then dose given per pt request.
[2022-01-24] MEDS: amitriptyline 25 mg Tablet 75 MG PO (20:36)
[2022-01-24] MEDS: trazodone 50 mg Tablet PO (20:37)
[2022-01-24] MEDS: hyDROXYzine 25 mg Capsule 50 MG PO (20:38)
[2022-01-24 22:00] VITALS: BP 111/62; PULSE 93; RESP 18; TEMP 36.9; O2SAT 98
[2022-01-25 06:00] VITALS: BP 116/84; PULSE 105; RESP 18; TEMP 36.8; O2SAT 97
[2022-01-25] MEDS: pantoprazole DR 40 mg Tablet PO (06:12)
[2022-01-25] MEDS: hydroCHLOROthiazide 25 mg Tablet PO (08:15)
[2022-01-25] MEDS: BuSPIRONE 10 mg Tablet 15 MG PO ×3 (08:15→20:25)
[2022-01-25] MEDS: methocarbamol 750 mg Tablet 1500 MG PO ×3 (08:15→20:25)
[2022-01-25] MEDS: lactobacillus 1 Tablet 1 TAB PO ×2 (08:15→18:47)
[2022-01-25] MEDS: prenatal vitamin Capsule 1 CAP PO (08:16)
[2022-01-25 14:00] VITALS: BP 123/89; PULSE 98; RESP 16; TEMP 36.6; O2SAT 97
--- NOTE | 2022-01-25 15:12 | W.PM.NPUPNS ---
Subjective NPU Subjective: Patient presented today reporting continued anxiety and denying any issues with the Prozac and started yesterday. No side effects reported. She is still quite tearful and reporting depression and limiting about life choices and circumstances. Discussed her of about a month with whom she has been in a relationship for almost a year and reporting that it is unlikely that they can resolve their conflict. She feels very sad about that reality. We discussed the risk-benefit alternatives of the starting Neurontin 100 mg p.o. 3 times daily for anxiety and she understood and agreed to proceed as is documented in this note. Mental Status Exam MSE Comments: This is an overweight versus obese white female in hospital scrubs with adequate grooming and eye contact. No abnormal movements except for mild psychomotor retardation. Cooperative with exam in mild to moderate distress. Speech was normal rate and volume. Mood described as depressed and anxious, affect is congruent, subdued and tearful. Thought process, organized. Thought content: patient denies suicidal or homicidal ideation, reports paranoia but no delusions noted and denies any auditory or visual hallucinations. Attention and concentration are intact and memory appeared reliable but none were formally tested. She is alert and oriented times three. Insight and judgment are fair. Impulse control is fair. Vitals/I&O/Wt Last Vital Signs Temp 98 F 01/25/22 14:00 Pulse 98 01/25/22 14:00 Resp 16 01/25/22 14:00 BP 123/89 01/25/22 14:00 Pulse Ox 97 01/25/22 14:00 O2 Del Method 01/25/22 14:00 Weight last 48 hrs Weight 108.862 kg Data NPU 01/23/22 20:00 01/23/22 20:00 A&P Assessment and plan (1) Major depressive disorder: (2) PTSD (post-traumatic stress disorder): (3) Suicidal ideation: (4) Anxiety: (5) GERD (gastroesophageal reflux disease): Plan This is a 36 year old white woman with a history of trauma, depression, anxiety and genetic loading for mental health and addiction issues who presents after her children have recently moved out reporting she is having worsening mental health now that she has no one to care for and experiencing paranoia. 1. Continue current medications. Initiated Prozac 20 mg po q daily. Start Neurontin 100 mg p.o. 3 times daily. 2. Encourage individual, group and milieu therapy 3. Continue q-15 minute check for safety 4. Recommend sober living treatment at the highest level of care to which the patient is willing to commit. Involuntary Hold Information 96 Hour Hold: 96 Hour Involuntary Admission: No Attestations NPU Medical Necessity Statement*: Inpatient hospitalization is medically necessary and the clinically appropriate intervention at this time. We will monitor medications and make changes as indicated. Likely length of stay is three to five days. Coding Level of Care Code Acute Brim Ironer Hand for [facility] Fwd Diagnoses Major depressive disorder F32.9 PTSD (post-traumatic stress disorder) F43.10 Suicidal ideation R45.851 Anxiety F41.9 GERD (gastroesophageal reflux disease) K21.9
[2022-01-25] MEDS: gabapentin 100 mg Capsule PO ×2 (15:39→20:26)
[2022-01-25] MEDS: amitriptyline 25 mg Tablet 75 MG PO (20:24)
[2022-01-25] MEDS: trazodone 50 mg Tablet PO (20:26)
[2022-01-25 22:00] VITALS: BP 131/95; PULSE 96; RESP 18; TEMP 36.3; O2SAT 96
[2022-01-26 06:00] VITALS: BP 123/86; PULSE 105; RESP 18; TEMP 36.7; O2SAT 96
[2022-01-26] MEDS: BuSPIRONE 10 mg Tablet 15 MG PO ×3 (08:26→20:37)
[2022-01-26] MEDS: methocarbamol 750 mg Tablet 1500 MG PO ×3 (08:26→20:38)
[2022-01-26] MEDS: gabapentin 100 mg Capsule PO ×3 (08:26→20:38)
[2022-01-26] MEDS: lactobacillus 1 Tablet 1 TAB PO ×2 (08:27→17:40)
[2022-01-26] MEDS: hydroCHLOROthiazide 25 mg Tablet PO (08:27)
[2022-01-26] MEDS: pantoprazole DR 40 mg Tablet PO (08:27)
[2022-01-26] MEDS: prenatal vitamin Capsule 1 CAP PO (08:27)
[2022-01-26 14:00] VITALS: BP 131/92; PULSE 119; RESP 20; TEMP 36.6; O2SAT 98
--- NOTE | 2022-01-26 17:05 | P.NPUPN_ITS ---
Subjective NPU Subjective: Patient presented today reporting that she is feeling better with the Prozac and the Neurontin. She was able to have a logical conversation about the circumstances with her and what her options are when she is discharged. She is identifying that staying in here may provide an escape but she is going to have to deal with the circumstances ultimately. We discussed monitoring her for least another night but the likelihood of discharge in the next 48 hours. Mental Status Exam MSE Comments: This is an overweight versus obese white female in hospital scrubs with adequate grooming and eye contact. No abnormal movements except for mild psychomotor retardation. Cooperative with exam in mild distress. Speech was normal rate and volume. Mood described as a little better, affect is congruent, and less subdued and tearful. Thought process, organized. Thought content: patient denies suicidal or homicidal ideation, reports paranoia but no delusions noted and denies any auditory or visual hallucinations. Attention and concentration are intact and memory appeared reliable but none were formally tested. She is alert and oriented times three. Insight and judgment are fair. Impulse control is fair. Vitals/I&O/Wt Last Vital Signs Temp 98.1 F 01/26/22 22:00 Pulse 110 H 01/26/22 22:00 Resp 18 01/26/22 22:00 BP 143/99 01/26/22 22:00 Pulse Ox 100 01/26/22 22:00 O2 Del Method 01/26/22 22:00 Data NPU 01/23/22 20:00 01/23/22 20:00 A&P Assessment and plan (1) Major depressive disorder: (2) PTSD (post-traumatic stress disorder): (3) Suicidal ideation: (4) Anxiety: (5) GERD (gastroesophageal reflux disease): Plan This is a 36 year old white woman with a history of trauma, depression, anxiety and genetic loading for mental health and addiction issues who presents after her children have recently moved out reporting she is having worsening mental health now that she has no one to care for and experiencing paranoia. 1. Continue current medications. Initiated Prozac 20 mg po q daily. Started Neurontin 100 mg p.o. 3 times daily. 2. Encourage individual, group and milieu therapy 3. Continue q-15 minute check for safety 4. Recommend sober living treatment at the highest level of care to which the patient is willing to commit. Involuntary Hold Information 96 Hour Hold: 96 Hour Involuntary Admission: No Attestations NPU Medical Necessity Statement*: Inpatient hospitalization is medically necessary and the clinically appropriate intervention at this time. We will monitor medications and make changes as indicated. Likely length of stay is 1-4 days. 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
[2022-01-26] MEDS: amitriptyline 25 mg Tablet 75 MG PO (20:37)
[2022-01-26] MEDS: trazodone 50 mg Tablet PO (20:38)
[2022-01-26] MEDS: hyDROXYzine 25 mg Capsule 50 MG PO (21:33)
[2022-01-26 22:00] VITALS: BP 143/99; PULSE 110; RESP 18; TEMP 36.7; O2SAT 100
[2022-01-27 06:00] VITALS: BP 138/89; PULSE 114; RESP 18; TEMP 36.7; O2SAT 95
[2022-01-27] MEDS: prenatal vitamin Capsule 1 CAP PO (09:00)
[2022-01-27] MEDS: pantoprazole DR 40 mg Tablet PO (09:00)
[2022-01-27] MEDS: methocarbamol 750 mg Tablet 1500 MG PO ×2 (09:00→14:29)
[2022-01-27] MEDS: hydroCHLOROthiazide 25 mg Tablet PO (09:00)
[2022-01-27] MEDS: BuSPIRONE 10 mg Tablet 15 MG PO ×2 (09:00→14:29)
[2022-01-27] MEDS: lactobacillus 1 Tablet 1 TAB PO (09:00)
[2022-01-27] MEDS: gabapentin 100 mg Capsule PO ×2 (09:00→14:29)
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
[2022-01-27] MEDS: fluoxetine 20 mg Capsule PO (14:29)
[2022-01-27 14:36] VITALS: BP 138/89; PULSE 114; RESP 18; TEMP 36.7; O2SAT 95
== END 2022-01-27 15:31 | disposition home or self-care (01) | DRG 881 ==
LOC: ER 20:27 → NP 20:50
PROVIDERS: Emergency Medicine; Admitting Provider Psychiatry & Neurology Psychiatry; Emergency Provider Emergency Medicine; Visit Provider Psychiatry & Neurology Psychiatry
DX: F32.9 Major depressive disorder, single episode, unspecified (principal); R45.851 Suicidal ideations; F41.9 Anxiety disorder, unspecified; F43.10 Post-traumatic stress disorder, unspecified; K21.9 Gastro-esophageal reflux disease without esophagitis; F17.210 Nicotine dependence, cigarettes, uncomplicated; Z62.898 Other specified problems related to upbringing
CPT/HCPCS: 80053; 80306; 80307; 81025; 85025; 97150; 97165; 99285